=== PATIENT | female | born 1975 | race Two or more races ===

== ENCOUNTER 2020-03-28 23:05 | Emergency (ER) | payer OTHER ==
[~2020-03-28] VITALS: Ht 165.1 cm; Wt 97.5 kg
[~2020-03-28 23:05] MED LIST: MIGRANAL
[2020-03-29] MEDS ORDERED: ORPHENADRINE C100 MG PO (06:29)
[2020-03-29] MEDS ORDERED: KETO10TA2 PO (06:29)
== END 2020-03-29 06:46 | disposition home or self-care (01) ==
LOC: ER 23:05
DX: G44.89 Other headache syndrome (principal); M34.89 Other systemic sclerosis